=== PATIENT | female | born 1940 | race Caucasian/White ===

== ENCOUNTER 2017-09-30 12:56 | Emergency (ER) | payer MEDICARE, BC ==
[~2017-09-30] VITALS: Ht 154.9 cm; Wt 73.6 kg
[2017-09-30 13:09] VITALS: BP 152/83; TEMP 98.7
[2017-09-30] MEDS ORDERED: IBU800 M1 PO (13:11)
[2017-09-30] MEDS ORDERED: NORCO 325 MG-51 TAB PO (13:11)
[2017-09-30] MEDS ORDERED: ZESTORETIC 12.51 TA1 PO (13:12)
[2017-09-30] MEDS ORDERED: SYNTHROID0.1 MG/TAB PO (13:12)
[2017-09-30] MEDS ORDERED: CLARITIN 1010 MG/TAB PO (13:13)
[2017-09-30 15:31] VITALS: PULSE 97
== END 2017-09-30 15:36 | disposition home or self-care (01) ==
LOC: COL.ER 12:56
DX: M23.91 Unspecified internal derangement of right knee (principal); I10 Essential (primary) hypertension; F17.210 Nicotine dependence, cigarettes, uncomplicated; X50.0XXA Overexertion from strenuous movement or load, initial encounter; Y92.009 Unspecified place in unspecified non-institutional (private) residence as the place of occurrence of the external cause

== ENCOUNTER 2017-10-13 15:45 | Outpatient (RCR) | payer MEDICARE, BC ==
[2005-06-29 12:18] VITALS: TEMP 97.6
[~2017-10-13 15:45] MED LIST: CLARITIN 1010 MG/TAB PO; IBU800 M1 PO; NORCO 325 MG-51 TAB PO; SYNTHROID0.1 MG/TAB PO; ZESTORETIC 12.51 TA1 PO
== END 2017-11-09 07:51 | disposition home or self-care (01) ==
LOC: WSPT 15:45
DX: S83.281D Other tear of lateral meniscus, current injury, right knee, subsequent encounter (principal)
CPT/HCPCS: G8978-GP; G8979-GP

== ENCOUNTER 2017-11-21 09:45 | Outpatient (RCR) | payer MEDICARE, BC ==
[2005-06-29 12:18] VITALS: TEMP 97.6
== END 2017-12-25 08:50 | disposition home or self-care (01) ==
LOC: WSC 09:45
DX: Z47.89 Encounter for other orthopedic aftercare (principal)
CPT/HCPCS: G8978-GP; G8979-GP; G8980-GP

== ENCOUNTER 2018-03-12 10:00 | Outpatient (RCR) | payer MEDICARE, BC ==
[2005-06-29 12:18] VITALS: TEMP 97.6
== END 2018-04-22 | disposition home or self-care (01) ==
LOC: WSST
DX: C32.1 Malignant neoplasm of supraglottis (principal)
CPT/HCPCS: G8996-GN; G8997-GN

== ENCOUNTER → 2018-06-14 | Outpatient (CLI) | payer MEDICARE, BC | LOC: COL.RAD 10:21 | DX: R13.12 Dysphagia, oropharyngeal phase (principal) | CPT/HCPCS: G8996-GN; G8997-GN; G8998-GN ==

== ENCOUNTER → 2018-07-17 | Outpatient (CLI) | payer MEDICARE, BC | LOC: COL.RAD 09:42 | DX: R22.1 Localized swelling, mass and lump, neck (principal); Z85.89 Personal history of malignant neoplasm of other organs and systems; Z92.3 Personal history of irradiation ==

== ENCOUNTER → 2018-09-03 | Outpatient (CLI) | payer MEDICARE, BC | LOC: MC.RAD 10:42 | DX: Z12.31 Encounter for screening mammogram for malignant neoplasm of breast (principal) ==

== ENCOUNTER 2019-01-02 13:45 | Outpatient (RCR) | payer MEDICARE, BC | END 2019-01-13 | disposition home or self-care (01) | LOC: WSST | DX: R49.0 Dysphonia (principal) ==

== ENCOUNTER → 2019-12-05 | Outpatient (CLI) | payer MEDICARE, BC | LOC: MC.RAD 09:56 | DX: Z12.31 Encounter for screening mammogram for malignant neoplasm of breast (principal); Z78.0 Asymptomatic menopausal state ==

== ENCOUNTER 2021-09-28 10:06 | Outpatient (RCR) | payer MEDICARE, BC | END 2021-10-23 | disposition home or self-care (01) | LOC: WSPT | DX: M17.11 Unilateral primary osteoarthritis, right knee (principal) ==

== ENCOUNTER 2021-10-22 11:00 | Outpatient (RCR) | payer MEDICARE, BC | END 2021-10-23 | LOC: PT.GENESIS | DX: M17.11 Unilateral primary osteoarthritis, right knee (principal); Z96.651 Presence of right artificial knee joint ==

== ENCOUNTER 2021-11-19 11:00 | Outpatient (RCR) | payer MEDICARE, BC | END 2021-11-23 | disposition home or self-care (01) | LOC: PT.GENESIS | DX: M17.11 Unilateral primary osteoarthritis, right knee (principal); Z96.652 Presence of left artificial knee joint ==

== ENCOUNTER 2021-12-21 13:00 | Outpatient (RCR) | payer MEDICARE, BC | END 2021-12-23 | disposition home or self-care (01) | LOC: PT.GENESIS | DX: M17.11 Unilateral primary osteoarthritis, right knee (principal) ==

== ENCOUNTER 2022-10-21 13:45 | Outpatient (RCR) | payer MEDICARE, BC | END 2022-10-23 | disposition home or self-care (01) | LOC: PT.GENESIS | DX: M54.6 Pain in thoracic spine (principal) ==

== ENCOUNTER → 2023-08-15 | Outpatient (CLI) | payer MEDICARE, BC | LOC: MHCPAIN 13:50 | DX: M54.50 Low back pain, unspecified (principal); M47.816 Spondylosis without myelopathy or radiculopathy, lumbar region; M48.061 Spinal stenosis, lumbar region without neurogenic claudication; M40.205 Unspecified kyphosis, thoracolumbar region | CPT/HCPCS: G0463 ==

== ENCOUNTER → 2023-09-26 | Outpatient (CLI) | payer MEDICARE, BC | LOC: MHCPAIN 11:27 | DX: M54.50 Low back pain, unspecified (principal); M47.816 Spondylosis without myelopathy or radiculopathy, lumbar region; M48.061 Spinal stenosis, lumbar region without neurogenic claudication; M40.205 Unspecified kyphosis, thoracolumbar region | CPT/HCPCS: G0463 ==

== ENCOUNTER → 2023-12-05 | Outpatient (CLI) | payer MEDICARE, BC ==
[~2023-12-05] MED LIST changes: +Albuterol 0.083% Neb Soln 2.5 MG/3 ML UD IH ONE; +Methacholine Vial A (Clear Label Base-Cntrl) IH ONE; +Methacholine Vial B (Red Label) 0.0625 MG/ML 3 ML VIAL.NEB IH ONE; +Methacholine Vial C (Orange Label) 0.25 MG/ML 3 ML VIAL.NEB IH ONE; +Methacholine Vial D (Yellow Label) 1 MG/ML 3 ML VIAL.NEB IH ONE; +Methacholine Vial E (Green Label) 4 MG/ML 3 ML VIAL.NEB IH ONE
== END ==
LOC: COL.CARD 07:54
DX: R06.02 Shortness of breath (principal)
CPT/HCPCS: J7674

== ENCOUNTER → 2023-12-14 | Outpatient (CLI) | payer MEDICARE, BC ==
[~2023-12-14] MED LIST changes: -Albuterol 0.083% Neb Soln 2.5 MG/3 ML UD IH ONE; -Methacholine Vial A (Clear Label Base-Cntrl) IH ONE; -Methacholine Vial B (Red Label) 0.0625 MG/ML 3 ML VIAL.NEB IH ONE; -Methacholine Vial C (Orange Label) 0.25 MG/ML 3 ML VIAL.NEB IH ONE; -Methacholine Vial D (Yellow Label) 1 MG/ML 3 ML VIAL.NEB IH ONE; -Methacholine Vial E (Green Label) 4 MG/ML 3 ML VIAL.NEB IH ONE
== END ==
LOC: MHCPAIN 13:57
DX: M54.50 Low back pain, unspecified (principal); M47.816 Spondylosis without myelopathy or radiculopathy, lumbar region; M48.061 Spinal stenosis, lumbar region without neurogenic claudication; M40.205 Unspecified kyphosis, thoracolumbar region
CPT/HCPCS: G0463

== ENCOUNTER 2023-12-24 09:07 | Emergency (ER) | payer MEDICARE, BC ==
[~2023-12-24] VITALS: Ht 152.4 cm; Wt 68.2 kg
[2023-12-24 09:14] VITALS: BP 116/66; PULSE 93; TEMP 97.5
== END 2023-12-24 10:13 | disposition home or self-care (01) ==
LOC: COL.ER 09:07
DX: S51.011A Laceration without foreign body of right elbow, initial encounter (principal); W06.XXXA Fall from bed, initial encounter

== ENCOUNTER 2024-01-07 09:55 | Emergency (ER) | payer MEDICARE, BC ==
[~2024-01-07] VITALS: Ht 152.4 cm; Wt 86.4 kg
[2024-01-07 10:15] VITALS: BP 128/67; TEMP 98.5
[2024-01-07] MEDS ORDERED: Home HYDROcodone/Acetaminophen 5/325 MG #4 TABS/PACK PO ONE (13:00)
[2024-01-07 13:04] VITALS: PULSE 80
== END 2024-01-07 13:04 | disposition home or self-care (01) ==
LOC: COL.ER 09:55
DX: M25.552 Pain in left hip (principal); Z87.891 Personal history of nicotine dependence

== ENCOUNTER → 2024-02-02 | Outpatient (CLI) | payer MEDICARE, BC | LOC: COL.LAB 13:42 | DX: R79.89 Other specified abnormal findings of blood chemistry (principal) ==